=== PATIENT | female | born 1960 | race Caucasian/White ===

== ENCOUNTER → 2016-09-05 | Outpatient (REF) | payer OTHER | LOC: M SFHCWAGY 10:22 | PROVIDERS: ATTEND Nurse Practitioner Women's Health | DX: Z12.4 Encounter for screening for malignant neoplasm of cervix (principal); Z12.31 Encounter for screening mammogram for malignant neoplasm of breast ==

== ENCOUNTER → 2016-09-05 | Outpatient (CLI) | payer OTHER ==
--- NOTE | 2016-09-05 10:45 | REPMRS ---
Patient History The patient states she had a clinical breast exam in 08/2016. Patient is postmenopausal. No known family history of cancer. Digital Woman Screen Mammo: September 05, 2016 - Exam #: [id number] Bilateral CC and MLO view(s) were taken. Technologist: Renuka De La Paz Technologist Prior study comparison: August 13, 2013, digital woman screen mammo performed at [facility]. October 01, 2007, bilateral mammogram, performed at [facility] ([facility]). FINDINGS: The breast tissue is heterogeneously dense. This may lower the sensitivity of mammography. There is a moderate amount of heterogeneously dense fibroglandular tissue which is fairly symmetric. There is no interval development of dominant mass, architectural distortion, or clustered microcalcification typical of malignancy. There has been no change in the appearance of the mammogram from the prior studies. ASSESSMENT: BI-RADS/ACR category 1 mammogram. Negative. Recommendation Routine screening mammogram of both breasts in 1 year (for women over age 40). This mammogram was interpreted with the aid of an FDA-approved computer-aided dectection system. Electronically Signed By: Trey Alarcon MD 09/05/16 [id number]
== END ==
LOC: M WHC 09:36
PROVIDERS: ATTEND Nurse Practitioner Women's Health
DX: Z12.31 Encounter for screening mammogram for malignant neoplasm of breast (principal)

== ENCOUNTER → 2016-11-12 | Outpatient (CLI) | payer OTHER ==
--- NOTE | 2016-11-12 20:38 | ECHO ---
DATE OF PROCEDURE: 11/12/2016 REFERRING PHYSICIAN: Kathia Borden NP PATIENT LOCATION: Outpatient REASON FOR ECHOCARDIOGRAM: Chest pain. 2D MEASUREMENTS: IVS: 0.87 cm LV: 4.5 cm LVPW: 1.0 cm LA: 3.4 cm Aorta: 2.8 cm IVC: 1.6 cm DOPPLER MEASUREMENTS: Peak velocity across the aortic valve: 1.3 m/s Peak velocity across the LVOT: 1.0 m/s Mitral E: 0.68, Mitral A: 0.80, with a ratio of 0.9 Maximum tricuspid valve velocity: 2.3 m/s 2D COMMENTS: 1. Normal left ventricular size, wall thickness and normal global left ventricular systolic function. The estimated left global left ventricular systolic ejection fraction is 60 to 65%. 2. Normal left atrium. Normal right atrium and right ventricle. 3. The atrial septum appeared to be normal without evidence of defect or shunt. 4. Normal aortic root. 5. No pericardial effusion seen. 6. The aortic valve appeared to be normal. Mildly calcified mitral annulus with normal anterior mitral valve leaflet motion. Normal tricuspid valve. The pulmonic valve and proximal pulmonary artery branches were not well visualized. 7. The inferior vena cava was normal in size, central venous pressure is most likely normal. DOPPLER: It detects trace mitral regurgitation and mild tricuspid regurgitation. The calculated pulmonary artery systolic pressure is about 30 mmHg. Abnormal relaxation pattern was noted across the mitral valve leaflets as well as the mitral valve annulus consistent with a delayed relaxation. IMPRESSION: 1. Normal global left ventricular systolic function. There are features of left ventricular diastolic dysfunction, grade 1. 2. Mitral annulus calcification with trace mitral regurgitation. 3. Mild tricuspid regurgitation with mild pulmonary hypertension.
== END ==
LOC: M CARPUL 15:49
PROVIDERS: ATTEND Nurse Practitioner Family
DX: R07.9 Chest pain, unspecified (principal)

== ENCOUNTER → 2019-01-19 | Outpatient (CLI) | payer OTHER ==
--- NOTE | 2019-01-19 10:58 | REP ---
Clinical: Localized pain and swelling. Technique: Axial noncontrast images from the thoracic inlet to the upper abdomen with coronal and sagittal re-formations. Comparison: 04/13/2015. 11/05/2016. Findings: The bilateral lung arreola are relatively well aerated, symmetric and essentially clear. Minimal age-related interstitial changes and trace biapical scarring again noted without acute focal consolidation, significant nodule, or mass lesion. No pleural effusion. No pneumothorax. Tracheobronchial tree is patent. No obvious axillary, hilar, or mediastinal adenopathy. The mediastinum demonstrates actually normal thoracic aorta, pulmonary vasculature and heart/pericardium. Impression: Minimal chronic stable changes. No acute mediastinal or pleuroparenchymal process appreciated. Electronically Signed by Rosales Smith MD 01/19/2019 10:50 A
== END ==
LOC: M RAD 09:20
PROVIDERS: ATTEND Otolaryngology
DX: R22.2 Localized swelling, mass and lump, trunk (principal)

== ENCOUNTER 2019-04-27 13:10 | Emergency (ER) | payer OTHER ==
[~2019-04-27] VITALS: Ht 167.6 cm; Wt 67.3 kg
[2019-04-27 13:11] VITALS: BP 137/88
[2019-04-27] MEDS ORDERED: NEOM1SUS13 (13:20)
[2019-04-27] MEDS ORDERED: OMEP-221 (13:20)
[2019-04-27] MEDS ORDERED: ALPR0.5T3 (13:20)
[2019-04-27] MEDS ORDERED: IBUP-1114 PO (13:20)
[2019-04-27] MEDS ORDERED: PRED10TA2 (13:20)
[2019-04-27] MEDS ORDERED: CLIN300C5 (13:20)
== END 2019-04-27 14:19 | disposition left against medical advice (07) ==
LOC: M ED 13:10
DX: Z53.29 Procedure and treatment not carried out because of patient's decision for other reasons (principal)

== ENCOUNTER → 2019-04-30 | Outpatient (CLI) | payer OTHER ==
[~2019-04-30] MED LIST: ALPR0.5T3; CLIN300C5; IBUP-1114 PO; NEOM1SUS13; OMEP-221; PRED10TA2
--- NOTE | 2019-04-30 15:04 | REP ---
CT internal auditory canals without contrast: History: Dizziness and giddiness. Acute mastoiditis with other complications left ear. Suppurative otitis media left ear. CT findings: External auditory canals are unremarkable bilaterally. Internal auditory canals are normal and symmetric. Vestibular and cochlear canals are unremarkable bilaterally. The middle ear cavities are aerated bilaterally with no evidence to suggest acute suppurative or serous otitis media. No bony erosive changes seen. Mastoid aeration is normal bilaterally. There is no CT evidence of mastoiditis. Periauricular soft tissues are unremarkable. No intracranial abnormality is seen. Impression: Normal CT IACs study bilaterally. Electronically Signed by Yassine Alarcon MD 04/30/2019 04:00 P
== END ==
LOC: M RAD 11:55
PROVIDERS: ATTEND Psychiatry & Neurology Neurology
DX: R42 Dizziness and giddiness (principal); H70.092 Acute mastoiditis with other complications, left ear; H66.42 Suppurative otitis media, unspecified, left ear

== ENCOUNTER → 2019-06-14 | Outpatient (REF) | payer OTHER ==
[2019-06-16 14:07] LABS: HPV HYBRID CAPTURE II Negative (Negative)
== END ==
LOC: M SFHCWAGY 11:40
PROVIDERS: ATTEND Nurse Practitioner Family
DX: Z12.4 Encounter for screening for malignant neoplasm of cervix (principal); B37.3 Candidiasis of vulva and vagina
CPT/HCPCS: 87624; G0123

== ENCOUNTER → 2020-09-07 | Outpatient (CLI) | payer OTHER ==
[~2020-09-07] MED LIST changes: -CLIN300C5; +CLIN300C6
--- NOTE | 2020-09-07 08:25 | REP ---
INDICATION: RIGHT UPPER QUAD PAIN, EPIGASTRIC PAIN COMPARISON: None. TECHNIQUE: Real time sanchez scale ultrasound examination using curved array transducer. FINDINGS: Liver is normal in contour, size, and echogenicity without focal hepatic lesions identified. Pancreas is incompletely evaluated due to interposed bowel gas. The gallbladder is normal and without gallstones, wall thickening, or pericholecystic fluid. No biliary ductal dilatation is appreciated and the common bile duct measures 2.0 mm diameter. Right kidney is normal in reniform shape without hydronephrosis and measures 11.1 x 5.0 x 5.5 cm. No ascites in the visualized right upper quadrant. The proximal to mid abdominal aorta appears normal and measures 2.4 cm maximal diameter. More distal aorta is obscured by overlying bowel gas. IMPRESSION: Normal limited right upper quadrant ultrasound <Electronically signed by Rosales Smith > 09/07/20 [id number]
== END ==
LOC: M RAD 07:02
PROVIDERS: ATTEND Physician Assistant Medical
DX: R10.11 Right upper quadrant pain (principal); R10.13 Epigastric pain

== ENCOUNTER → 2020-09-26 | Outpatient (CLI) | payer OTHER ==
[2020-09-26 14:17] LABS: BASO % 0.4 % (0.0-1.0); EOS # 0.1 10^3/uL (0.0-0.5); EOS % 1.6 % (0.0-3.0); HEMATOCRIT 41.3 % (36.0-47.0); HEMOGLOBIN 13.4 g/dl (12.0-15.5); LYMPH # 2.7 10^3/uL (1.5-5.0); LYMPH % 36.5 % (24.0-44.0); MEAN CORPUSCULAR HEMOGLOBIN 30.6 pg (27.0-33.0); MEAN CORPUSCULAR HGB CONC 32.4 g/dl (32.0-36.5); MEAN CORPUSCULAR VOLUME 94.3 fl (80.0-96.0); MONO # 0.6 10^3/uL (0.0-0.8); MONO % 7.6 % (2.0-8.0); NEUTROPHILS % 53.6 % (36.0-66.0); PLATELET COUNT, AUTOMATED 253 10^3/uL (150-450); RED BLOOD COUNT 4.38 10^6/uL (4.00-5.40); WHITE BLOOD COUNT 7.5 10^3/uL (4.0-10.0)
[2020-09-26 14:54] LABS: ALBUMIN 3.8 GM/DL (3.2-5.2); ALT/SGPT 22 U/L (12-78); AMYLASE 35 U/L (25-115); BILIRUBIN,TOTAL 0.5 MG/DL (0.2-1.0); BLOOD UREA NITROGEN 13 MG/DL (7-18); CALCIUM LEVEL 9.5 MG/DL (8.5-10.1); CARBON DIOXIDE LEVEL 29 MEQ/L (21-32); CHLORIDE LEVEL 104 MEQ/L (98-107); CREATININE FOR GFR 0.74 MG/DL (0.55-1.30); GLOMERULAR FILTRATION RATE > 60.0 (>51); GLUCOSE, FASTING 107 MG/DL (70-100); LIPASE 128 U/L (73-393); POTASSIUM SERUM 3.9 MEQ/L (3.5-5.1); SODIUM LEVEL 137 MEQ/L (136-145); TOTAL PROTEIN 7.2 GM/DL (6.4-8.2)
== END ==
LOC: M PLALAB 09:35
PROVIDERS: ATTEND Physician Assistant Medical
DX: R10.13 Epigastric pain (principal); R19.7 Diarrhea, unspecified; R11.2 Nausea with vomiting, unspecified

== ENCOUNTER → 2020-09-27 | Outpatient (CLI) | payer OTHER ==
[~2020-09-27] MED LIST changes: +GASTROGRAFIN SOLUTION 30ML (Q9963) As Ordered ONE; +ISOVUE-370 76% 100ML VIAL As Ordered ONE
--- NOTE | 2020-09-27 12:55 | REP ---
INDICATION: PERIUMBILICAL PAIN. COMPARISON: 02/01/2015 TECHNIQUE: Axial contrast-enhanced images from the lung bases to the pubic symphysis using 100 cc Isovue 370 intravenous contrast material. Precontrast images of the abdomen obtained along with coronal and sagittal reformations. This CT examination was performed using the following dose reduction techniques: Automated exposure control, adjustment of mA and/or kv according to the patient's size, and the use of iterative reconstruction technique. FINDINGS: Lung bases are clear. Visualized heart and pericardium normal. Liver includes small subcentimeter stable hypodensities suggesting cysts primarily noted in the posterior segment right lobe. Spleen, pancreas, gallbladder, and bilateral adrenal glands are normal. Kidneys demonstrate few small nonobstructing intrarenal calculi measuring up to 3 mm bilaterally without perinephric stranding, hydroureteronephrosis, or obstructing ureteral calculi. The enteric system including stomach, small, and large bowel appears normal. No evidence for obstruction or acute inflammatory process. Normal terminal ileum and appendix are identified in the right lower quadrant. Scattered sigmoid diverticula noted without acute diverticulitis. Pelvis demonstrates normal bladder and age-appropriate uterus/adnexa. No ascites. No free air. No intraperitoneal or retroperitoneal adenopathy. Abdominal aorta and vasculature appear normal. Musculoskeletal structures demonstrate degenerative changes at the L4-5 level and chronic sclerosis along the right pubis similar to prior examination. IMPRESSION: No acute abdominopelvic pathology appreciated. Bilateral nephrolithiasis. Scattered diverticula. <Electronically signed by Rosales Smith > 09/27/20 [id number]
== END ==
LOC: M RAD 10:51
PROVIDERS: ATTEND Physician Assistant Medical
DX: R10.33 Periumbilical pain (principal); R19.7 Diarrhea, unspecified; R11.2 Nausea with vomiting, unspecified
CPT/HCPCS: 74178; Q9963; Q9967

== ENCOUNTER → 2020-09-27 | Outpatient (REF) | payer OTHER ==
[~2020-09-27] MED LIST changes: -GASTROGRAFIN SOLUTION 30ML (Q9963) As Ordered ONE; -ISOVUE-370 76% 100ML VIAL As Ordered ONE
== END ==
LOC: M LAB REF 09:40
PROVIDERS: ATTEND Physician Assistant Medical
DX: R19.7 Diarrhea, unspecified (principal)

== ENCOUNTER → 2020-10-11 | Outpatient (CLI) | payer OTHER ==
[~2020-10-11] MED LIST changes: +ACET-683 PO; +OMEP40CA97 PO; +PRED5TA PO; +XANA0.5T PO
== END ==
LOC: M LABSMTC 11:48
PROVIDERS: ATTEND Anesthesiology
DX: Z01.812 Encounter for preprocedural laboratory examination (principal); Z20.822 Contact with and (suspected) exposure to COVID-19

== ENCOUNTER 2020-10-16 10:57 | Day surgery (SDC) | payer OTHER ==
[~2020-10-16] VITALS: Ht 167.6 cm; Wt 65.5 kg
[~2020-10-16 10:57] MED LIST changes: +NS 1,000 ML IV ONE
[2020-10-16] MEDS ORDERED: LIDOCAINE 2% 100MG/5ML SDV (FOR ANES.) As Ordered ONE (11:03)
[2020-10-16] MEDS ORDERED: propofoL 500 MG/50 ML VIAL As Ordered ONE (11:04)
[2020-10-16] MEDS ORDERED: fentaNYL 100 MCG/2 ML INJECTION (J3010) As Ordered ONE (11:04)
[2020-10-16] MEDS ORDERED: MIDAZOLAM INJ 2MG/2ML VIAL (J2250 PER 1MG) As Ordered ONE (12:23)
--- NOTE | 2020-10-16 12:34 | ROOR ---
Patient Name: Pati Lucas Procedure Date: 10/16/2020 12:19 PM Date of : 1960 Age: 59 Room: [facility] Gender: Female Note Status: Finalized Procedure: Upper GI endoscopy Indications: Generalized abdominal pain, Dysphagia, Heartburn Providers: Jeffrey GUAJARDO MD Referring MD: CHUN TATUM DO Requesting Provider: Medicines: Monitored Anesthesia Care Complications: No immediate complications. Procedure: Pre-Anesthesia Assessment: - The heart rate, respiratory rate, oxygen saturations, blood pressure, adequacy of pulmonary ventilation, and response to care were monitored throughout the procedure. The Endoscope was introduced through the mouth, and advanced to the second part of duodenum. The upper GI endoscopy was accomplished without difficulty. The patient tolerated the procedure well. Findings: The examined esophagus was normal. Biopsies were taken with a cold forceps for histology. The entire examined stomach was normal with a very small hiatal hernia. The examined duodenum was normal. Impression: - Normal esophagus. Biopsied. - A very small hiatal hernia is seen, but otherwise normal stomach. - Normal examined duodenum. Recommendation: - Observe patient's clinical course. - Telephone endoscopist for pathology results in 2 weeks. Procedure Code(s): --- Professional --- 45385, Esophagogastroduodenoscopy, flexible, transoral; with biopsy, single or multiple Diagnosis Code(s): --- Professional --- R12, Heartburn R13.10, Dysphagia, unspecified R10.84, Generalized abdominal pain CPT copyright 2019 [employer]. All rights reserved. The codes documented in this report are preliminary and upon billing control clerk review may be revised to meet current compliance requirements. Jeffrey Guajardo MD Jeffrey GUAJARDO MD 10/16/2020 12:34:04 PM Electronically signed by Jeffrey GUAJARDO MD Number of Addenda: 0 Note Initiated On: 10/16/2020 12:19 PM Estimated Blood Loss: Estimated blood loss: none.
[2020-10-16] MEDS ORDERED: PHENYLephrine 500MCG 5ML (100MCG/ML) SYRINGE ONE (13:03)
--- NOTE | 2020-10-16 13:16 | ROOR ---
Patient Name: Pati Lucas Procedure Date: 10/16/2020 12:19 PM Date of : 1960 Age: 59 Room: [facility] Gender: Female Note Status: Finalized Procedure: Colonoscopy Indications: Screening for colorectal malignant neoplasm Providers: Jeffrey GUAJARDO MD Referring MD: CHUN TATUM DO Requesting Provider: Medicines: Monitored Anesthesia Care Complications: No immediate complications. Procedure: Pre-Anesthesia Assessment: - The heart rate, respiratory rate, oxygen saturations, blood pressure, adequacy of pulmonary ventilation, and response to care were monitored throughout the procedure. The Colonoscope was introduced through the anus and advanced to 10 cm into the ileum. The colonoscopy was performed without difficulty. The patient tolerated the procedure well. The quality of the bowel preparation was good. Findings: The perianal and digital rectal examinations were normal. Ten flat and sessile and semi-pedunculated polyps were found in the recto-sigmoid colon, sigmoid colon and ascending colon. The polyps were 5 to 10 mm in size. These polyps were removed with a piecemeal technique using a cold snare. Resection and retrieval were complete. Multiple medium-mouthed diverticula were found in the sigmoid colon. Internal hemorrhoids were found during retroflexion. The hemorrhoids were medium-sized. The exam was otherwise normal throughout the examined colon. The terminal ileum appeared normal. Impression: - Ten 5 to 10 mm polyps at the recto-sigmoid colon, in the sigmoid colon and in the ascending colon, removed piecemeal using a cold snare. Resected and retrieved. - Moderate diverticulosis in the sigmoid colon. - Internal hemorrhoids. - The colon is otherwise normal. - The examined portion of the ileum was normal. Recommendation: - Telephone endoscopist for pathology results in 2 weeks. - If the pathology report reveals adenomatous tissue, then repeat the colonoscopy for surveillance of multiple polyps in 1 year. - If the pathology report indicates hyperplastic polyp, then repeat colonoscopy for surveillance in 3 years. Procedure Code(s): --- Professional --- 53200, Colonoscopy, flexible; with removal of tumor(s), polyp(s), or other lesion(s) by snare technique Diagnosis Code(s): --- Professional --- K57.30, Diverticulosis of large intestine without perforation or abscess without bleeding K63.5, Polyp of colon K64.8, Other hemorrhoids Z12.11, Encounter for screening for malignant neoplasm of colon CPT copyright 2019 [employer]. All rights reserved. The codes documented in this report are preliminary and upon vertical boring mill operator review may be revised to meet current compliance requirements. Jeffrey Guajardo MD Jeffrey GUAJARDO MD 10/16/2020 1:15:45 PM Electronically signed by Jeffrey GUAJARDO MD Number of Addenda: 0 Note Initiated On: 10/16/2020 12:19 PM Estimated Blood Loss: Estimated blood loss: none.
[2020-10-16 14:17] VITALS: BP 115/75
== END 2020-10-16 13:55 | disposition home or self-care (01) ==
LOC: M OPP 10:57
PROVIDERS: ATTEND Internal Medicine Gastroenterology
DX: Z12.11 Encounter for screening for malignant neoplasm of colon (principal); K63.5 Polyp of colon; K64.8 Other hemorrhoids; K57.30 Diverticulosis of large intestine without perforation or abscess without bleeding; R10.84 Generalized abdominal pain; R13.10 Dysphagia, unspecified; R12 Heartburn; R00.9 Unspecified abnormalities of heart beat; F17.210 Nicotine dependence, cigarettes, uncomplicated; Z79.899 Other long term (current) drug therapy; Z88.0 Allergy status to penicillin; Z88.8 Allergy status to other drugs, medicaments and biological substances; Z91.048 Other nonmedicinal substance allergy status
CPT/HCPCS: 43239; 45385; 88305; J2250; J2370; J3010

== ENCOUNTER → 2020-12-04 | Outpatient (CLI) | payer OTHER ==
[~2020-12-04] MED LIST changes: +GLUCAGON INJ 1MG VIAL As Ordered ONE; +ISOVUE-370 76% 100ML VIAL As Ordered ONE; -NS 1,000 ML IV ONE; +VoLumen 0.1% SUSPENSION 450ML BOTTLE As Ordered ONE
--- NOTE | 2020-12-05 07:03 | REP ---
INDICATION: RIGHT UPPER QUADRANT PAIN,PERIUMBILICAL PAIN COMPARISON: 09/27/2020 TECHNIQUE: Axial contrast-enhanced images from the lung bases to the pubic symphysis with images obtained in arterial and portal venous phases of enhancement. Low-dose oral contrast material was administered prior to imaging followed by 100 cc Isovue 370 intravenous contrast material. Coronal and sagittal reformations were obtained. This CT examination was performed using the following dose reduction techniques: Automated exposure control, adjustment of mA and/or kv according to the patient's size, and use of iterative reconstruction technique. FINDINGS: The small bowel is normal in appearance. Normal terminal ileum, appendix and cecum are identified in the right lower quadrant. The colon demonstrates moderate sigmoid diverticula without acute diverticulitis. A small hiatal hernia at the gastroesophageal junction cannot be excluded. The stomach and duodenum appear normal. Liver includes few subcentimeter hypodensities compatible with benign cysts. Spleen, pancreas, gallbladder, bilateral adrenal glands and right kidney are normal. Left kidney includes 1.0 cm simple cyst. Pelvis demonstrates normal bladder and retroflexed uterus. No ascites. No adenopathy. No free air. Aorta is normal and without aneurysm or dissection. Musculoskeletal structures demonstrate focal degenerative changes at the L4-5 and L5-S1 levels. Lung bases are clear. IMPRESSION: 1. Possible small hiatal hernia at the gastroesophageal junction. 2. Sigmoid diverticula without acute diverticulitis. 3. Otherwise normal appearance to the enteric system. 4. Small simple appearing subcentimeter hepatic and 1 cm left renal cysts. <Electronically signed by Rosales Smith > 12/05/20 [id number]
== END ==
LOC: M RAD 13:51
PROVIDERS: ATTEND Physician Assistant Medical
DX: K57.30 Diverticulosis of large intestine without perforation or abscess without bleeding (principal); N28.1 Cyst of kidney, acquired; R10.33 Periumbilical pain; R19.8 Other specified symptoms and signs involving the digestive system and abdomen; R10.32 Left lower quadrant pain
CPT/HCPCS: 74177; J1610; Q9967

== ENCOUNTER → 2021-09-19 | Outpatient (CLI) | payer OTHER ==
[~2021-09-19] MED LIST changes: +CLIN-250; -CLIN300C6; -GLUCAGON INJ 1MG VIAL As Ordered ONE; -ISOVUE-370 76% 100ML VIAL As Ordered ONE; -OMEP-221; +OMEP40CA4 PO; +OMEP40CA5; -OMEP40CA97 PO; -VoLumen 0.1% SUSPENSION 450ML BOTTLE As Ordered ONE
== END ==
LOC: M RAD 09:10
PROVIDERS: ATTEND Internal Medicine
DX: Z72.0 Tobacco use (principal)

== ENCOUNTER → 2022-04-17 | Outpatient (CLI) | payer OTHER | LOC: M WHC 12:14 | PROVIDERS: ATTEND Nurse Practitioner Family | DX: I65.23 Occlusion and stenosis of bilateral carotid arteries (principal) ==

== ENCOUNTER → 2022-11-25 | Outpatient (CLI) | payer OTHER ==
[~2022-11-25] MED LIST changes: +GASTROGRAFIN SOLUTION 30ML As Ordered ONE; +ISOVUE-370 76% 100ML VIAL As Ordered ONE
== END ==
LOC: M RAD 07:01
PROVIDERS: ATTEND Physician Assistant Medical
DX: R10.11 Right upper quadrant pain (principal); R10.31 Right lower quadrant pain
CPT/HCPCS: 74178; Q9963; Q9967

== ENCOUNTER → 2023-05-02 | Outpatient (CLI) | payer OTHER ==
[~2023-05-02] MED LIST changes: -GASTROGRAFIN SOLUTION 30ML As Ordered ONE; -ISOVUE-370 76% 100ML VIAL As Ordered ONE
== END ==
LOC: M WHC 10:28
PROVIDERS: ATTEND Nurse Practitioner Family
DX: I77.9 Disorder of arteries and arterioles, unspecified (principal)

== ENCOUNTER → 2023-06-24 | Outpatient (CLI) | payer OTHER | LOC: M RAD 09:43 | PROVIDERS: ATTEND Internal Medicine | DX: Z12.2 Encounter for screening for malignant neoplasm of respiratory organs (principal); Z72.0 Tobacco use ==

== ENCOUNTER → 2023-07-25 | Outpatient (CLI) | payer OTHER | LOC: M RAD 07:34 | PROVIDERS: ATTEND Physician Assistant Medical | DX: R10.11 Right upper quadrant pain (principal); R10.13 Epigastric pain; R11.0 Nausea | CPT/HCPCS: 76705; 78227; A9537 ==

== ENCOUNTER 2023-10-14 09:16 | Day surgery (SDC) | payer OTHER ==
[~2023-10-14] VITALS: Ht 167.6 cm; Wt 62.1 kg
[~2023-10-14 09:16] MED LIST changes: +ALPR0.5T7 PO; +IBUP-1022 PO; +OMEP-173 PO; +ROSU5TAB5 PO
[2023-10-14] MEDS ORDERED: ACET650T61 PO (09:57)
[2023-10-14] MEDS: NS 1,000 ML IV ONE (09:58)
[2023-10-14] MEDS ORDERED: GLYCOPYRROLATE INJ 0.2 MG/ML 2 ML VIAL As Ordered ONE (10:18)
[2023-10-14] MEDS ORDERED: propofoL 200 MG/20 ML VIAL As Ordered ONE (10:18)
[2023-10-14 11:40] VITALS: TEMP 97.7
[2023-10-14 12:00] VITALS: BP 108/65; O2SAT 97
== END 2023-10-14 12:13 | disposition home or self-care (01) ==
LOC: M OPP 09:16
PROVIDERS: ATTEND Internal Medicine Gastroenterology
DX: Z12.11 Encounter for screening for malignant neoplasm of colon (principal); Z86.010 Personal history of colon polyps; D12.4 Benign neoplasm of descending colon; K63.5 Polyp of colon; K57.30 Diverticulosis of large intestine without perforation or abscess without bleeding; K44.9 Diaphragmatic hernia without obstruction or gangrene; R10.31 Right lower quadrant pain; R10.11 Right upper quadrant pain; Z79.1 Long term (current) use of non-steroidal anti-inflammatories (NSAID); Z79.52 Long term (current) use of systemic steroids; Z79.899 Other long term (current) drug therapy; Z88.1 Allergy status to other antibiotic agents; Z91.048 Other nonmedicinal substance allergy status

== ENCOUNTER → 2024-07-15 | Outpatient (CLI) | payer OTHER ==
[~2024-07-15] MED LIST changes: +ACET650T61 PO; +ISOVUE-370 76% 100ML VIAL As Ordered ONE; +ROSU5TAB49 PO; -ROSU5TAB5 PO
== END ==
LOC: M RAD 10:57
PROVIDERS: ATTEND Physician Assistant Medical
DX: R10.13 Epigastric pain (principal); R11.0 Nausea

== ENCOUNTER 2024-08-31 22:14 | Emergency (ER) | payer OTHER ==
[~2024-08-31] VITALS: Ht 167.6 cm; Wt 65.9 kg
[~2024-08-31 22:14] MED LIST changes: -ISOVUE-370 76% 100ML VIAL As Ordered ONE
[2024-08-31 22:41] LABS: BASO % 0.3 % (0.0-1.0); EOS # 0.1 10^3/uL (0.0-0.5); EOS % 0.5 % (0.0-3.0); HEMATOCRIT 43.2 % (36.0-47.0); HEMOGLOBIN 14.7 g/dl (12.0-15.5); LYMPH # 3.4 10^3/uL (1.5-5.0); LYMPH % 36.4 % (24.0-44.0); MEAN CORPUSCULAR HEMOGLOBIN 32.5 pg (27.0-33.0); MEAN CORPUSCULAR VOLUME 95.6 fl (80.0-96.0); MONO # 0.7 10^3/uL (0.0-0.8); NEUTROPHILS # 5.2 10^3/uL (1.5-8.5); NEUTROPHILS % 55.6 % (36.0-66.0); PLATELET COUNT, AUTOMATED 188 10^3/uL (150-450); RED BLOOD COUNT 4.52 10^6/uL (4.00-5.40); WHITE BLOOD COUNT 9.4 10^3/uL (4.0-10.0)
[2024-08-31 23:05] LABS: CK-MB VALUE MASS 1.4 NG/ML (<3.6)
[2024-08-31 23:07] LABS: BLOOD UREA NITROGEN 17 MG/DL (9-23); CALCIUM LEVEL 9.6 MG/DL (8.3-10.6); CARBON DIOXIDE LEVEL 23 MMOL/L (20-31); CHLORIDE LEVEL 110 MMOL/L (98-107); CREATININE FOR GFR 0.62 MG/DL (0.55-1.30); GLOMERULAR FILTRATION RATE > 60.0 (>45); GLUCOSE, FASTING 111 MG/DL (74-106); POTASSIUM SERUM 4.4 MMOL/L (3.5-5.1); SODIUM LEVEL 142 MMOL/L (136-145)
[2024-08-31 23:11] LABS: CPK CREATINE PHOSPHOKINASE 78 U/L (34-145); MB/CK RELATIVE INDEX 1.79 (< OR =4)
[2024-09-01 00:40] LABS: CK-MB VALUE MASS < 1.0 NG/ML (<3.6); MAGNESIUM LEVEL 1.8 MG/DL (1.8-2.4)
[2024-09-01 00:44] LABS: CPK CREATINE PHOSPHOKINASE 71 U/L (34-145); THYROID STIMULATING HORMONE 0.497 uIU/ML (0.55-4.78)
[2024-09-01 01:00] VITALS: BP 112/68; TEMP 97; O2SAT 96
== END 2024-09-01 01:13 | disposition home or self-care (01) ==
LOC: M ED 22:14
DX: R00.2 Palpitations (principal); R07.89 Other chest pain; K21.9 Gastro-esophageal reflux disease without esophagitis; F41.9 Anxiety disorder, unspecified; Z88.1 Allergy status to other antibiotic agents; Z88.8 Allergy status to other drugs, medicaments and biological substances; Z79.1 Long term (current) use of non-steroidal anti-inflammatories (NSAID); Z79.52 Long term (current) use of systemic steroids; Z79.899 Other long term (current) drug therapy

== ENCOUNTER → 2024-11-22 | Outpatient (REF) | payer OTHER ==
[2024-11-22 13:47] LABS: APPEARANCE, URINE HAZY (CLEAR); BACTERIA, URINE AUTO NEGATIVE (NEGATIVE); BILIRUBIN, URINE AUTO NEGATIVE (NEGATIVE); BLOOD, URINE BLOOD NEGATIVE (NEGATIVE); CALCIUM OXALATE CRYSTALS LARGE; COLOR, URINE YELLOW (YELLOW); GLUCOSE, URINE (UA) AUTO NEGATIVE (NEGATIVE); KETONE, URINE AUTO NEGATIVE (NEGATIVE); LEUKOCYTE ESTERASE, URINE AUTO TRACE (NEGATIVE); MUCUS, URINE SMALL (NEGATIVE); NITRITE, URINE AUTO NEGATIVE (NEGATIVE); PROTEIN, URINE AUTO NEGATIVE (NEGATIVE); RBC, URINE AUTO 3 /HPF (0-3); SPECIFIC GRAVITY URINE AUTO 1.032 (1.002-1.035); SQUAMOUS EPITHELIAL CELL UR AU 0 /HPF (0-6); UROBILINOGEN, URINE AUTO 0.2 mg/dL (0.0-2.0); WBC, URINE AUTO 6 /HPF (0-3)
== END ==
LOC: M SMT 13:06
PROVIDERS: ATTEND Nurse Practitioner Family
DX: R31.0 Gross hematuria (principal); R82.89 Other abnormal findings on cytological and histological examination of urine

== ENCOUNTER → 2024-12-14 | Outpatient (CLI) | payer OTHER ==
[2024-12-14 12:16] LABS: BLOOD UREA NITROGEN 15 MG/DL (9-23); CALCIUM LEVEL 9.7 MG/DL (8.3-10.6); CARBON DIOXIDE LEVEL 31 MMOL/L (20-31); CHLORIDE LEVEL 104 MMOL/L (98-107); CREATININE FOR GFR 0.56 MG/DL (0.55-1.30); GLOMERULAR FILTRATION RATE > 90.0 (>45); GLUCOSE, FASTING 95 MG/DL (74-106); POTASSIUM SERUM 4.2 MMOL/L (3.5-5.1); SODIUM LEVEL 143 MMOL/L (136-145)
== END ==
LOC: M LAB 11:16
PROVIDERS: ATTEND Internal Medicine Cardiovascular Disease
DX: I71.21 Aneurysm of the ascending aorta, without rupture (principal)

== ENCOUNTER → 2024-12-15 | Outpatient (CLI) | payer OTHER ==
[~2024-12-15] MED LIST changes: +ISOVUE-370 76% 100ML VIAL As Ordered ONE
== END ==
LOC: M RAD 07:52
PROVIDERS: ATTEND Internal Medicine Cardiovascular Disease
DX: I71.21 Aneurysm of the ascending aorta, without rupture (principal); J43.9 Emphysema, unspecified
CPT/HCPCS: 71275; Q9967

== ENCOUNTER 2025-02-03 12:50 | Emergency (ER) | payer OTHER ==
[~2025-02-03] VITALS: Ht 167.6 cm; Wt 69.2 kg
[~2025-02-03 12:50] MED LIST changes: -ISOVUE-370 76% 100ML VIAL As Ordered ONE
[2025-02-03 13:59] LABS: KETONE, URINE AUTO RFX NEGATIVE (NEGATIVE); LEUKOCYTE ESTERASE UR AUTO RFX NEGATIVE (NEGATIVE); NITRITE, URINE AUTO RFX NEGATIVE (NEGATIVE); RBC, URINE AUTO RFX 0 /HPF (0-3); SQUAM EPITHELIAL CELL UR AURFX 0 /HPF (0-6); WBC, URINE AUTO RFX 1 /HPF (0-3)
[2025-02-03 14:08] LABS: BASO # 0.0 10^3/uL (0.0-0.2); BASO % 0.4 % (0.0-1.0); EOS # 0.1 10^3/uL (0.0-0.5); EOS % 1.4 % (0.0-3.0); LYMPH # 1.9 10^3/uL (1.5-5.0); LYMPH % 22.8 % (24.0-44.0); MONO # 0.7 10^3/uL (0.0-0.8); MONO % 8.5 % (2.0-8.0); NEUTROPHILS # 5.7 10^3/uL (1.5-8.5); NEUTROPHILS % 66.7 % (36.0-66.0); PLATELET COUNT, AUTOMATED 221 10^3/uL (150-450)
[2025-02-03 14:31] LABS: ALT/SGPT 27 U/L (7.0-40); AST/SGOT 20 U/L (<34); CALCIUM LEVEL 9.7 MG/DL (8.3-10.6); CARBON DIOXIDE LEVEL 29 MMOL/L (20-31); CHLORIDE LEVEL 105 MMOL/L (98-107); CREATININE FOR GFR 0.62 MG/DL (0.55-1.30); GLOMERULAR FILTRATION RATE > 90.0 (>45); POTASSIUM SERUM 3.9 MMOL/L (3.5-5.1); SODIUM LEVEL 143 MMOL/L (136-145)
[2025-02-03 19:15] VITALS: BP 149/90; TEMP 98; O2SAT 98
== END 2025-02-03 19:43 | disposition home or self-care (01) ==
LOC: M ED 12:50
DX: Z71.1 Person with feared health complaint in whom no diagnosis is made (principal); M32.9 Systemic lupus erythematosus, unspecified; I48.91 Unspecified atrial fibrillation; I10 Essential (primary) hypertension; Z88.1 Allergy status to other antibiotic agents; Z88.8 Allergy status to other drugs, medicaments and biological substances; Z79.1 Long term (current) use of non-steroidal anti-inflammatories (NSAID); Z79.51 Long term (current) use of inhaled steroids; Z79.899 Other long term (current) drug therapy